=== PATIENT | female | born 1940 | race Two or more races ===

== ENCOUNTER 2019-12-06 11:27 | Outpatient (CLI) | payer OTHER | END 2019-12-06 14:51 | disposition home or self-care (01) | LOC: TOM 11:27 | PROVIDERS: ATTEND Internal Medicine Gastroenterology | DX: R10.32 Left lower quadrant pain (principal); A09 Infectious gastroenteritis and colitis, unspecified ==

== ENCOUNTER 2021-08-18 14:33 | Emergency (ER) | payer OTHER ==
[~2021-08-18] VITALS: Ht 152.4 cm; Wt 127.0 kg
[2021-08-18] MEDS ORDERED: LEVOFLOXACIN750 MG PO (14:44)
[2021-08-18] MEDS ORDERED: GLIPIZIDE10 MG PO (14:45)
[2021-08-18] MEDS ORDERED: HYDRALAZINE HCL25 MG PO (14:45)
[2021-08-18] MEDS ORDERED: METFORMIN HCL1000 M3 PO (14:45)
[2021-08-18] MEDS ORDERED: ZOVIRAX800 MG PO (15:58)
== END 2021-08-18 18:51 | disposition home or self-care (01) ==
LOC: ER 14:33
DX: B02.9 Zoster without complications (principal)

== ENCOUNTER 2021-08-28 09:49 | Emergency (ER) | payer OTHER ==
[~2021-08-28] VITALS: Ht 152.4 cm; Wt 90.7 kg
[~2021-08-28 09:49] MED LIST: GLIPIZIDE10 MG PO; HYDRALAZINE HCL25 MG PO; LEVOFLOXACIN750 MG PO; METFORMIN HCL1000 M3 PO; ZOVIRAX800 MG PO
== END 2021-08-28 13:30 | disposition home or self-care (01) ==
LOC: ER 09:49
DX: L30.9 Dermatitis, unspecified (principal); I10 Essential (primary) hypertension; E11.9 Type 2 diabetes mellitus without complications; Z79.84 Long term (current) use of oral hypoglycemic drugs